=== PATIENT | male | born 1960 | race Two or more races ===

== ENCOUNTER 2017-12-31 21:23 | Emergency (ER) | payer SELFPAY ==
[~2017-12-31] VITALS: Ht 185.4 cm; Wt 83.9 kg
[2017-12-31] MEDS ORDERED: cloNIDine HCL 0.1 MG TAB ONE (21:50)
[2017-12-31] MEDS: cloNIDine HCL 0.1 MG TAB PO ONE ×2 (21:50→22:30)
[2017-12-31 23:17] LABS: Basophils # (auto) 0.1 uL; Basophils % (auto) 0.8 % (0.0-2.0); Eosinophils # (auto) 0.5 uL; Eosinophils % (auto) 5.5 % (0.0-7.0); Hematocrit 45.3 % (41.0-53.0); Hemoglobin 15.3 g/dL (13.5-17.5); Lymphocytes # (auto) 3.2 uL; Lymphocytes % (auto) 36.5 % (10.0-50.0); Mean Corpuscular Hgb Conc. 33.9 g/dL (32.0-36.0); Mean Corpuscular Volume 94.4 fL (80.0-100.0); Monocytes # (auto) 0.7 uL; Neutrophils # (auto) 4.3 uL; Neutrophils % (auto) 49.2 % (37.0-80.0); Nucleated Red Blood Cells % 0.3 %; Platelet Count (auto) 139 10^3/uL (140-450); Red Blood Cells 4.79 10^6/uL (4.5-5.90); Red Cell Distribution Width 14.2 % (11.8-14.3); White Blood Cell 8.7 10^3/uL (4.4-10.8)
[2017-12-31 23:32] LABS: Albumin 3.8 g/dL (3.4-5.0); Calcium 8.6 mg/dL (8.5-10.1); Potassium 3.8 mmol/L (3.5-5.1)
[2017-12-31 23:34] LABS: BUN/Creatinine Ratio 27.3
[2017-12-31 23:37] LABS: Bilirubin, Total 0.3 mg/dL (0.2-1.0); Total Protein 7.6 g/dL (6.4-8.2)
[2018-01-01 01:04] LABS: Urine WBC None Seen /hpf (0 - 3)
[2018-01-01 01:21] LABS: Urine Bacteria NONE SEEN /hpf (None Seen); Urine Blood Negative /uL (Negative); Urine Mucus FEW (None Seen); Urine Specific Gravity 1.019 (1.001-1.035)
[2018-01-01 06:30] VITALS: BP 166/94
[2018-01-01] MEDS ORDERED: cefTRIAXone W LIDOCAINE 1 GM IM IM ONE (07:45)
== END 2018-01-01 09:13 | disposition home or self-care (01) ==
LOC: ER 21:23
DX: N48.29 Other inflammatory disorders of penis (principal)
CPT/HCPCS: 36415; 80053; 81001; 85025; 96372; 99284; J0696

== ENCOUNTER 2019-12-04 19:31 | Emergency (ER) | payer SELFPAY ==
[~2019-12-04] VITALS: Ht 185.4 cm; Wt 83.9 kg
[2019-12-04 20:15] VITALS: BP 204/107
[2019-12-04] MEDS ORDERED: cloNIDine HCL 0.1 MG TAB PO ONE (20:15)
[2019-12-04 21:28] LABS: Albumin 3.3 g/dL (3.4-5.0); Anion Gap 7 (5-15); Blood Urea Nitrogen 15 mg/dL (7-18); Calcium 8.5 mg/dL (8.5-10.1); Carbon Dioxide 26 mmol/L (21-32); Chloride 111 mmol/L (98-107); Glucose 110 mg/dL (74-106); Potassium 3.8 mmol/L (3.5-5.1); Sodium 144 mmol/L (136-145)
[2019-12-04 21:29] LABS: Basophils # (auto) 0.1 10 ^3/uL (0-0.2); Eosinophils # (auto) 0.5 10 ^3/uL (0-0.8); Eosinophils % (auto) 6.7 % (0.0-7.0); Hematocrit 44.6 % (41.0-53.0); Hemoglobin 15.2 g/dL (13.5-17.5); Lymphocytes # (auto) 2.5 10 ^3/uL (0.4-5.4); Lymphocytes % (auto) 35.2 % (10.0-50.0); Mean Corpuscular Hemoglobin 32.2 pg (28.0-32.0); Mean Corpuscular Hgb Conc. 34.2 g/dL (32.0-36.0); Mean Corpuscular Volume 94.2 fL (80.0-100.0); Monocytes # (auto) 0.5 10 ^3/uL (0-1.3); Monocytes % (auto) 7.2 % (0.0-12.0); Neutrophils # (auto) 3.5 10 ^3/uL (1.6-8.6); Neutrophils % (auto) 49.9 % (37.0-80.0); Nucleated Red Blood Cells % 0.1 %; Platelet Count (auto) 115 10^3/uL (140-450); Red Blood Cells 4.73 10^6/uL (4.5-5.90)
[2019-12-04 21:34] LABS: Alanine Aminotransferase 16 U/L (16-61); Alkaline Phosphatase 77 U/L (45-117); Aspartate Aminotransferase 12 U/L (15-37); BUN/Creatinine Ratio 20.3; Bilirubin, Total 0.2 mg/dL (0.2-1.0); GFR African American 140 mL/min; GFR Non-African American 116 mL/min; Total Protein 6.8 g/dL (6.4-8.2)
[2019-12-04 21:44] LABS: Urine Bacteria NONE SEEN /hpf (None Seen); Urine Blood Negative /uL (Negative); Urine Mucus FEW (None Seen); Urine Specific Gravity 1.021 (1.001-1.035); Urine WBC <1 /hpf (0 - 3)
== END 2019-12-04 22:04 | disposition home or self-care (01) ==
LOC: ER 19:31
DX: I16.0 Hypertensive urgency (principal); J02.9 Acute pharyngitis, unspecified; B37.89 Other sites of candidiasis; I10 Essential (primary) hypertension
CPT/HCPCS: 36415; 80053; 81001; 84484; 85025; 93005

== ENCOUNTER 2022-09-05 15:19 | Inpatient (IN) | payer MEDICAID, OTHER ==
[~2022-09-05] VITALS: Ht 185.4 cm; Wt 91.8 kg
[2022-09-05 16:23] LABS: Basophils # (auto) 0.1 10 ^3/uL (0-0.2); Basophils % (auto) 0.7 % (0.0-2.0); Eosinophils # (auto) 0.4 10 ^3/uL (0-0.8); Eosinophils % (auto) 4.7 % (0.0-7.0); Hematocrit 47.3 % (41.0-53.0); Hemoglobin 16.3 g/dL (13.5-17.5); Lymphocytes # (auto) 2.7 10 ^3/uL (0.4-5.4); Mean Corpuscular Hemoglobin 31.5 pg (28.0-32.0); Mean Corpuscular Hgb Conc. 34.5 g/dL (32.0-36.0); Mean Corpuscular Volume 91.2 fL (80.0-100.0); Monocytes # (auto) 0.7 10 ^3/uL (0-1.3); Monocytes % (auto) 7.7 % (0.0-12.0); Neutrophils # (auto) 5.4 10 ^3/uL (1.6-8.6); Neutrophils % (auto) 57.9 % (37.0-80.0); Nucleated Red Blood Cells % 0.3 %; Red Blood Cells 5.19 10^6/uL (4.5-5.90); Red Cell Distribution Width 14.1 % (11.8-14.3); White Blood Cell 9.3 10^3/uL (4.4-10.8)
[2022-09-05 16:39] LABS: Albumin 3.5 g/dL (3.4-5.0); BUN/Creatinine Ratio 20.3; Potassium 4.1 mmol/L (3.5-5.1)
[2022-09-05 16:41] LABS: Bilirubin, Total 0.4 mg/dL (0.2-1.0); Total Protein 6.8 g/dL (6.4-8.2)
[2022-09-05] MEDS ORDERED: ASPirin 325 MG TAB PO ONE (17:30)
[2022-09-05 18:14] LABS: Urine Bacteria NONE SEEN /hpf (None Seen); Urine Blood Negative /uL (Negative); Urine Hyaline Cast FEW /lpf (0 - 2); Urine Mucus FEW (None Seen); Urine Specific Gravity 1.018 (1.001-1.035); Urine WBC 2 /hpf (0 - 3)
[2022-09-05] MEDS ORDERED: MORPHINE SULFATE INJ 2 MG/ml SYRG IV PRN (19:00)
[2022-09-05] MEDS ORDERED: NITROGLYCERIN 0.4 MG SL TAB SL PRN (19:00)
[2022-09-05] MEDS ORDERED: METOPROLOL SUCCINATE XL 50 MG TAB PO ONE (19:00)
[2022-09-05 19:32] LABS: Cholesterol 172 mg/dL (< 200)
[2022-09-05 19:34] LABS: HDL Cholesterol 43 mg/dL (40-59); LDL Cholesterol 122 mg/dL (< 100); Triglycerides 85 mg/dL (< 150)
[2022-09-05 19:50] LABS: Amphetamine Screen, Urine NEGATIVE (NEGATIVE); Barbiturate Scree,Urine NEGATIVE (NEGATIVE); Benzodiazephine Screen, Urine NEGATIVE (NEGATIVE); Cannabinoid Screen, Urine NEGATIVE (NEGATIVE); Cocaine Screen, Urine NEGATIVE (NEGATIVE); Opiate Scree,Urine NEGATIVE (NEGATIVE); Phencyclidine Screen, Urine NEGATIVE (NEGATIVE)
[2022-09-05 20:00] LABS: Alcohol, Urine < 3.0 mg/dL (0-10)
[2022-09-05] MEDS: ATORVASTATIN 20 MG TAB PO SCH (22:20)
[2022-09-05] MEDS: hydrALAZINE HCL 20 MG/ML VL IV PRN (22:54)
[2022-09-06 01:31] VITALS: BP 130/91
[2022-09-06] MEDS ORDERED: CLON-499 PO (03:25)
[2022-09-06] MEDS ORDERED: ASPI-543 PO (03:25)
[2022-09-06 05:00] VITALS: BP 163/90
[2022-09-06] MEDS: hydrALAZINE HCL 20 MG/ML VL IV PRN (06:13)
[2022-09-06 07:09] LABS: Basophils # (auto) 0.1 10 ^3/uL (0-0.2); Basophils % (auto) 0.9 % (0.0-2.0); Eosinophils # (auto) 0.4 10 ^3/uL (0-0.8); Eosinophils % (auto) 6.5 % (0.0-7.0); Hematocrit 45.4 % (41.0-53.0); Hemoglobin 15.7 g/dL (13.5-17.5); Lymphocytes # (auto) 2.2 10 ^3/uL (0.4-5.4); Lymphocytes % (auto) 34.8 % (10.0-50.0); Mean Corpuscular Hemoglobin 31.5 pg (28.0-32.0); Mean Corpuscular Hgb Conc. 34.6 g/dL (32.0-36.0); Monocytes # (auto) 0.5 10 ^3/uL (0-1.3); Monocytes % (auto) 8.2 % (0.0-12.0); Neutrophils # (auto) 3.2 10 ^3/uL (1.6-8.6); Neutrophils % (auto) 49.6 % (37.0-80.0); Nucleated Red Blood Cells % 0.1 %; Red Blood Cells 4.99 10^6/uL (4.5-5.90); White Blood Cell 6.4 10^3/uL (4.4-10.8)
[2022-09-06 07:14] LABS: Albumin 3.6 g/dL (3.4-5.0); Bilirubin, Total 0.7 mg/dL (0.2-1.0); Calcium 8.6 mg/dL (8.5-10.1); Total Protein 6.7 g/dL (6.4-8.2)
[2022-09-06] MEDS: ASPirin 81 mg TAB PO SCH (08:17)
[2022-09-06] MEDS: METOPROLOL SUCCINATE XL 50 MG TAB PO SCH (08:18)
[2022-09-06] MEDS: ENOXAPARIN SOD 40 MG/0.4 ML SYRINGE SC SCH (08:18)
[2022-09-06 09:00] VITALS: BP 157/99
[2022-09-06] MEDS ORDERED: LOSARTAN POTASSIUM 25 MG TAB PO ONE (10:45)
[2022-09-06] MEDS ORDERED: ONDANSETRON HCL 4 MG/2 ML VIAL IV PRN (11:45)
[2022-09-06] MEDS ORDERED: ACETAMINOPHEN 325 MG TAB PO PRN (11:45)
[2022-09-06] MEDS ORDERED: cloNIDine HCL 0.1 MG TAB PO ONE (11:45)
[2022-09-06] MEDS ORDERED: cloNIDine HCL 0.1 MG TAB PO PRN (12:00)
[2022-09-06] MEDS ORDERED: NICOTINE 14 MG/24HR TOPICAL PATCH TD ONE (12:15)
[2022-09-06 13:00] VITALS: BP 117/88
[2022-09-06 17:00] VITALS: BP 131/72
[2022-09-06] MEDS: ATORVASTATIN 20 MG TAB PO SCH (21:49)
[2022-09-06 22:00] VITALS: BP 136/84
[2022-09-07 05:00] VITALS: BP 144/82
[2022-09-07] MEDS ORDERED: ADENOSINE 77 MG in GIVE UN-DILUTED 0 ML IV ONE (08:00)
[2022-09-07 08:53] VITALS: BP 139/96
[2022-09-07] MEDS: ASPirin 81 mg TAB PO SCH (09:24)
[2022-09-07] MEDS: ENOXAPARIN SOD 40 MG/0.4 ML SYRINGE SC SCH (09:25)
[2022-09-07] MEDS: METOPROLOL SUCCINATE XL 50 MG TAB PO SCH (09:25)
[2022-09-07] MEDS ORDERED: LOSARTAN POTASSIUM 25 MG TAB PO SCH (10:00)
[2022-09-07] MEDS ORDERED: NICOTINE 14 MG/24HR TOPICAL PATCH TD SCH (10:00)
[2022-09-07] MEDS ORDERED: cloNIDine HCL 0.1 MG TAB PO SCH (10:00)
[2022-09-07 11:02] VITALS: BP 128/87
[2022-09-07 13:05] VITALS: BP 137/83
[2022-09-07 16:47] VITALS: BP 128/87
[2022-09-07 17:08] VITALS: BP 138/80
== END 2022-09-07 18:00 | disposition home or self-care (01) | DRG 203 ==
LOC: ER 15:19 → TELE 18:56 → TELE-WESTW 23:26
PROVIDERS: ADMIT Registered Nurse; ATTEND Student in an Organized Health Care Education/Training Program
DX: R07.9 Chest pain, unspecified (principal); E78.5 Hyperlipidemia, unspecified; F17.200 Nicotine dependence, unspecified, uncomplicated; I10 Essential (primary) hypertension; H91.90 Unspecified hearing loss, unspecified ear; Z20.822 Contact with and (suspected) exposure to COVID-19; R73.03 Prediabetes; Z71.6 Tobacco abuse counseling; Z82.49 Family history of ischemic heart disease and other diseases of the circulatory system
CPT/HCPCS: 36415; 71045; 78452; 80053; 80061; 80307; 81001; 83036; 84443; 84484; 85025; 87426; 93005; 93017; 93306; 96374; G0378; J0153; J2405

== ENCOUNTER 2023-05-09 19:26 | Inpatient (IN) | payer MEDICAID ==
[~2023-05-09] VITALS: Ht 185.4 cm; Wt 87.5 kg
[~2023-05-09 19:26] MED LIST: ASPI-543 PO; CLON-499 PO
[2023-05-09 20:00] VITALS: PULSE 88; RESP 19; O2SAT 95
[2023-05-09 20:16] LABS: Basophils # (auto) 0.1 10 ^3/uL (0-0.2); Basophils % (auto) 0.7 % (0.0-2.0); Eosinophils # (auto) 0.4 10 ^3/uL (0-0.8); Hematocrit 45.9 % (41.0-53.0); Hemoglobin 15.7 g/dL (13.5-17.5); Lymphocytes # (auto) 2.5 10 ^3/uL (0.4-5.4); Lymphocytes % (auto) 30.3 % (10.0-50.0); Mean Corpuscular Hemoglobin 31.7 pg (28.0-32.0); Mean Corpuscular Hgb Conc. 34.2 g/dL (32.0-36.0); Mean Corpuscular Volume 92.9 fL (80.0-100.0); Monocytes # (auto) 0.6 10 ^3/uL (0-1.3); Monocytes % (auto) 7.6 % (0.0-12.0); Neutrophils # (auto) 4.7 10 ^3/uL (1.6-8.6); Neutrophils % (auto) 56.4 % (37.0-80.0); Red Blood Cells 4.94 10^6/uL (4.5-5.90); Red Cell Distribution Width 13.8 % (11.8-14.3); White Blood Cell 8.3 10^3/uL (4.4-10.8)
[2023-05-09 20:34] LABS: Alanine Aminotransferase 20 U/L (7-40); Albumin 4.2 g/dL (3.2-4.8); Alkaline Phosphatase 86 U/L (46-116); Anion Gap 6 (5-15); Aspartate Aminotransferase 17 U/L (13-40); BUN/Creatinine Ratio 21.5 (10.0-20.0); Blood Urea Nitrogen 17 mg/dL (9-23); Calcium 9.2 mg/dL (8.7-10.4); Carbon Dioxide 24 mmol/L (20-30); Chloride 112 mmol/L (98-107); Glucose 110 mg/dL (74-106); Magnesium 1.7 mg/dL (1.6-2.6); Potassium 3.8 mmol/L (3.5-5.1); Sodium 142 mmol/L (136-145)
[2023-05-09 20:35] LABS: Bilirubin, Total 0.3 mg/dL (0.2-1.0); Total Protein 6.5 g/dL (5.7-8.2)
[2023-05-09] MEDS ORDERED: cloNIDine HCL 0.1 MG TAB PO ONE (22:30)
[2023-05-09] MEDS ORDERED: cefTRIAXone 1GM/50ML D5W 50 ML IV ONE (22:30)
[2023-05-09 23:06] LABS: Amphetamine Screen, Urine Neg (NEGATIVE); Barbiturate Scree,Urine Neg (NEGATIVE); Benzodiazephine Screen, Urine Neg (NEGATIVE); Cannabinoid Screen, Urine Neg (NEGATIVE); Cocaine Screen, Urine Neg (NEGATIVE); Opiate Scree,Urine Neg (NEGATIVE); Phencyclidine Screen, Urine Neg (NEGATIVE)
[2023-05-09 23:08] LABS: Urine Bacteria NONE SEEN /hpf (None Seen); Urine Blood Negative /uL (Negative); Urine Clarity Clear (Clear); Urine Color Colorless (Yellow); Urine Protein, UAD Negative (Negative); Urine Specific Gravity 1.004 (1.001-1.035); Urine Urobilinogen Normal (Negative); Urine WBC <1 /hpf (0 - 3)
[2023-05-10] MEDS ORDERED: VANCOMYCIN PER PHARMACY 0 MG IV SCH (05:30)
[2023-05-10] MEDS ORDERED: NITROGLYCERIN 0.4 MG SL TAB SL PRN (05:30)
[2023-05-10] MEDS ORDERED: HYDROcodone-ACET 5/325MG TAB PO PRN (05:30)
[2023-05-10] MEDS ORDERED: ONDANSETRON HCL 4 MG/2 ML VIAL IV PRN (05:30)
[2023-05-10] MEDS ORDERED: MORPHINE SULFATE INJ 2 MG/ml SYRG IV PRN (05:30)
[2023-05-10] MEDS ORDERED: ACETAMINOPHEN 325 MG TAB PO PRN (05:30)
[2023-05-10] MEDS ORDERED: VANCOMYCIN 1GM/250ML 250 ML IV ONE (06:30)
[2023-05-10 07:55] VITALS: PULSE 63; RESP 12; O2SAT 95
[2023-05-10] MEDS: ENOXAPARIN SOD 40 MG/0.4 ML SYRINGE SC SCH (09:52)
[2023-05-10] MEDS: ASPirin 81 mg TAB PO SCH (09:52)
[2023-05-10] MEDS: PANTOPRAZOLE 40 MG TAB PO SCH (09:52)
[2023-05-10] MEDS: METOPROLOL SUCCINATE XL 50 MG TAB PO SCH (09:53)
[2023-05-10] MEDS: amLODIPine BESYLATE 5 MG TAB PO SCH (09:53)
[2023-05-10] MEDS: LISINOPRIL 10 MG TAB PO SCH (13:34)
[2023-05-10] MEDS: VANCOMYCIN 1GM/250ML 250 ML IV SCH ×2 (13:48→22:49)
[2023-05-10 15:20] LABS: Erythrocyte Sedimentation Rate 8 mm/hr (0-20)
[2023-05-10 19:30] VITALS: PULSE 65; RESP 14; O2SAT 96
[2023-05-10 22:00] VITALS: BP 140/83; PULSE 67; RESP 18; TEMP 97.9; O2SAT 95
[2023-05-10] MEDS ORDERED: ATORVASTATIN 20 MG TAB PO SCH (22:00)
[2023-05-10] MEDS: ATORVASTATIN 20 MG TAB PO SCH (22:49)
[2023-05-11] VITALS (15 sets, daily range): BP systolic 131–177; BP diastolic 82–110; PULSE 66–105; RESP 16–20; TEMP 97.8–98.9; O2SAT 95–100
[2023-05-11] MEDS: hydrALAZINE HCL 20 MG/ML VL IV PRN ×2 (05:17→22:57)
[2023-05-11 06:19] LABS: Chloride 108 mmol/L (98-107); Potassium 4.1 mmol/L (3.5-5.1); Sodium 139 mmol/L (136-145)
[2023-05-11 06:20] LABS: Anion Gap 4 (5-15); Carbon Dioxide 27 mmol/L (20-30)
[2023-05-11 06:21] LABS: Calcium 9.3 mg/dL (8.7-10.4)
[2023-05-11 06:25] LABS: Glucose 101 mg/dL (74-106)
[2023-05-11 06:26] LABS: BUN/Creatinine Ratio 15.4 (10.0-20.0); Blood Urea Nitrogen 10 mg/dL (9-23)
[2023-05-11 07:41] LABS: Basophils # (auto) 0.1 10 ^3/uL (0-0.2); Basophils % (auto) 0.7 % (0.0-2.0); Eosinophils # (auto) 0.5 10 ^3/uL (0-0.8); Eosinophils % (auto) 5.8 % (0.0-7.0); Hematocrit 47.1 % (41.0-53.0); Lymphocytes # (auto) 2.3 10 ^3/uL (0.4-5.4); Lymphocytes % (auto) 27.1 % (10.0-50.0); Mean Corpuscular Hemoglobin 31.8 pg (28.0-32.0); Mean Corpuscular Volume 93.5 fL (80.0-100.0); Monocytes # (auto) 0.6 10 ^3/uL (0-1.3); Monocytes % (auto) 6.9 % (0.0-12.0); Neutrophils # (auto) 4.9 10 ^3/uL (1.6-8.6); Neutrophils % (auto) 59.5 % (37.0-80.0); Nucleated Red Blood Cells % 0.6 %; Red Blood Cells 5.03 10^6/uL (4.5-5.90); Red Cell Distribution Width 14.3 % (11.8-14.3); White Blood Cell 8.3 10^3/uL (4.4-10.8)
[2023-05-11 07:49] LABS: INR 1.07 (0.9-1.15); Partial Thromboplastin Time 28.2 SEC (24.5-34.5); Prothrombin Time 11.2 sec (9.3-11.8)
[2023-05-11] MEDS: VANCOMYCIN 1GM/250ML 250 ML IV SCH ×2 (09:21→17:01)
[2023-05-11] MEDS: amLODIPine BESYLATE 5 MG TAB PO SCH (09:22)
[2023-05-11] MEDS: ASPirin 81 mg TAB PO SCH (09:23)
[2023-05-11] MEDS: ENOXAPARIN SOD 40 MG/0.4 ML SYRINGE SC SCH (09:23)
[2023-05-11] MEDS: PANTOPRAZOLE 40 MG TAB PO SCH (09:23)
[2023-05-11] MEDS: METOPROLOL SUCCINATE XL 50 MG TAB PO SCH (09:23)
[2023-05-11] MEDS: LISINOPRIL 10 MG TAB PO SCH (09:23)
[2023-05-11] MEDS ORDERED: VERAPAMIL 2.5MG/ML INJ 2ML VIAL IV ONE (13:25)
[2023-05-11] MEDS ORDERED: HEPARIN SODIUM (PORCINE) 5000 UNITS/ML 1ML VIAL ONE (13:25)
[2023-05-11] MEDS ORDERED: ANGIOMAX 250 MG VIAL IV ONE (13:25)
[2023-05-11] MEDS ORDERED: fentaNYL CITRATE 100 MCG/2 ML VL ONE (13:26)
[2023-05-11] MEDS ORDERED: IODIXANOL 320MG/ML 100ML BTL IV ONE ×3 (13:26→14:51)
[2023-05-11] MEDS ORDERED: SODIUM CHL 0.9% 50 ML ONE (13:26)
[2023-05-11] MEDS ORDERED: MIDAZOLAM HCL 2MG/2ML 2ml VIAL (1mg/ml) ONE (13:26)
[2023-05-11] MEDS ORDERED: LIDOCAINE 2%HCL (LOCAL ANESTH.) INJ 20ML MDV ONE (13:26)
[2023-05-11] MEDS ORDERED: CLOPIDOGREL 300 MG TAB ONE (14:55)
[2023-05-11] MEDS: ATORVASTATIN 20 MG TAB PO SCH (21:27)
[2023-05-12] MEDS: VANCOMYCIN 1GM/250ML 250 ML IV SCH ×3 (01:06→17:46)
[2023-05-12 05:53] VITALS: BP 136/86; PULSE 79; RESP 16; TEMP 98.7; O2SAT 97
[2023-05-12 08:00] VITALS: BP 146/91; PULSE 77; PULSE 78; RESP 18; TEMP 98.2; O2SAT 95
[2023-05-12] MEDS: ENOXAPARIN SOD 40 MG/0.4 ML SYRINGE SC SCH (10:04)
[2023-05-12] MEDS: ASPirin 81 mg TAB PO SCH (10:05)
[2023-05-12] MEDS: PANTOPRAZOLE 40 MG TAB PO SCH (10:05)
[2023-05-12] MEDS: LISINOPRIL 10 MG TAB PO SCH (10:05)
[2023-05-12] MEDS: amLODIPine BESYLATE 5 MG TAB PO SCH (10:05)
[2023-05-12] MEDS: METOPROLOL SUCCINATE XL 50 MG TAB PO SCH (10:06)
[2023-05-12] MEDS: CLOPIDOGREL BISULFATE 75 MG TAB PO SCH (10:06)
[2023-05-12 13:00] VITALS: BP 147/89; PULSE 72; RESP 22; TEMP 98.2; O2SAT 95
[2023-05-12 17:00] VITALS: BP 134/88; PULSE 70; RESP 19; TEMP 98.2; O2SAT 99
[2023-05-12 20:00] VITALS: BP 137/83; PULSE 64; PULSE 71; RESP 20; TEMP 97.5; O2SAT 96
[2023-05-12] MEDS: ATORVASTATIN 20 MG TAB PO SCH (21:28)
[2023-05-12 22:00] VITALS: BP 137/83; PULSE 64; RESP 20; TEMP 97.5; O2SAT 96
[2023-05-13] VITALS (7 sets, daily range): BP systolic 119–147; BP diastolic 77–86; PULSE 65–81; RESP 17–18; TEMP 97.8–98.8; O2SAT 95–100
[2023-05-13] MEDS: VANCOMYCIN 1GM/250ML 250 ML IV SCH ×3 (01:13→17:01)
[2023-05-13 06:54] LABS: Potassium 4.4 mmol/L (3.5-5.1)
[2023-05-13 06:55] LABS: Calcium 9.3 mg/dL (8.7-10.4)
[2023-05-13 07:00] LABS: BUN/Creatinine Ratio 11.3 (10.0-20.0)
[2023-05-13 07:01] LABS: Albumin 4.2 g/dL (3.2-4.8)
[2023-05-13 07:02] LABS: Phosphorus 3.9 mg/dL (2.4-5.1)
[2023-05-13] MEDS: PANTOPRAZOLE 40 MG TAB PO SCH (10:00)
[2023-05-13] MEDS: amLODIPine BESYLATE 5 MG TAB PO SCH (10:00)
[2023-05-13] MEDS: METOPROLOL SUCCINATE XL 50 MG TAB PO SCH (10:00)
[2023-05-13] MEDS: LISINOPRIL 10 MG TAB PO SCH (10:00)
[2023-05-13] MEDS ORDERED: fentaNYL CITRATE 100 MCG/2 ML VL ONE (10:41)
[2023-05-13] MEDS ORDERED: ONDANSETRON HCL 4 MG/2 ML VIAL ONE (10:42)
[2023-05-13] MEDS ORDERED: LIDOCAINE 2% (LOCAL ANESTH.) PF 5ml SDV ONE (10:42)
[2023-05-13] MEDS ORDERED: MIDAZOLAM HCL 2MG/2ML 2ml VIAL (1mg/ml) ONE (10:42)
[2023-05-13] MEDS ORDERED: PROPOFOL 10 MG/ML 20 ML IV ONE ×2 (10:43→13:49)
[2023-05-13] MEDS ORDERED: ceFAZolin 1GM/50ML 100 ML IV ONE (12:55)
[2023-05-13] MEDS ORDERED: ceFAZolin 1GM VL ONE (12:55)
[2023-05-13] MEDS ORDERED: ONDANSETRON HCL 4 MG/2 ML VIAL IV PRN (14:00)
[2023-05-13] MEDS ORDERED: HYDROmorphone HCL 2 MG/ML VL/or syr IV PRN ×2 (14:00)
[2023-05-13] MEDS: CLOPIDOGREL BISULFATE 75 MG TAB PO SCH (15:31)
[2023-05-13] MEDS: ASPirin 81 mg TAB PO SCH (15:31)
[2023-05-13] MEDS ORDERED: SUCCINYLCHOLINE CHLORIDE 20 MG/ML 10ML VIAL IV ONE (16:40)
[2023-05-13] MEDS: ATORVASTATIN 20 MG TAB PO SCH (21:11)
[2023-05-14] MEDS: VANCOMYCIN 1GM/250ML 250 ML IV SCH ×2 (01:08→09:17)
[2023-05-14 05:00] VITALS: BP 134/88; PULSE 66; RESP 17; TEMP 98.3; O2SAT 98
[2023-05-14 06:20] LABS: Basophils # (auto) 0 10 ^3/uL (0-0.2); Basophils % (auto) 0.5 % (0.0-2.0); Eosinophils # (auto) 0.5 10 ^3/uL (0-0.8); Eosinophils % (auto) 6.5 % (0.0-7.0); Hematocrit 44.7 % (41.0-53.0); Lymphocytes # (auto) 1.8 10 ^3/uL (0.4-5.4); Lymphocytes % (auto) 25.6 % (10.0-50.0); Mean Corpuscular Hemoglobin 31.5 pg (28.0-32.0); Mean Corpuscular Hgb Conc. 33.6 g/dL (32.0-36.0); Mean Corpuscular Volume 93.8 fL (80.0-100.0); Monocytes # (auto) 0.6 10 ^3/uL (0-1.3); Monocytes % (auto) 7.8 % (0.0-12.0); Neutrophils # (auto) 4.2 10 ^3/uL (1.6-8.6); Neutrophils % (auto) 59.6 % (37.0-80.0); Nucleated Red Blood Cells % 0.2 %; Red Blood Cells 4.77 10^6/uL (4.5-5.90); White Blood Cell 7.1 10^3/uL (4.4-10.8)
[2023-05-14 06:35] LABS: Anion Gap 5 (5-15); Carbon Dioxide 29 mmol/L (20-30); Chloride 105 mmol/L (98-107); Potassium 4.3 mmol/L (3.5-5.1); Sodium 139 mmol/L (136-145)
[2023-05-14 06:37] LABS: Calcium 9.1 mg/dL (8.7-10.4)
[2023-05-14 06:41] LABS: BUN/Creatinine Ratio 13.9 (10.0-20.0); Blood Urea Nitrogen 11 mg/dL (9-23); Glucose 111 mg/dL (74-106)
[2023-05-14 08:00] VITALS: PULSE 77; PULSE 92; RESP 18; O2SAT 94
[2023-05-14] MEDS: amLODIPine BESYLATE 5 MG TAB PO SCH (09:15)
[2023-05-14] MEDS: ASPirin 81 mg TAB PO SCH (09:16)
[2023-05-14] MEDS: LISINOPRIL 10 MG TAB PO SCH (09:17)
[2023-05-14] MEDS: CLOPIDOGREL BISULFATE 75 MG TAB PO SCH (09:17)
[2023-05-14] MEDS: PANTOPRAZOLE 40 MG TAB PO SCH (09:17)
[2023-05-14] MEDS: METOPROLOL SUCCINATE XL 50 MG TAB PO SCH (09:18)
[2023-05-14 09:21] VITALS: BP 114/75; PULSE 77; RESP 77; TEMP 98.1; O2SAT 94
[2023-05-14 13:00] VITALS: BP 136/74; PULSE 65; RESP 17; TEMP 98.5; O2SAT 96
[2023-05-14] MEDS ORDERED: AML5T PO (13:13)
[2023-05-14] MEDS ORDERED: DOXY-447 PO (13:13)
[2023-05-14] MEDS ORDERED: METO-6 PO (13:13)
[2023-05-14] MEDS ORDERED: ATOR20TA50 PO (13:13)
[2023-05-14] MEDS ORDERED: CLOP75TA70 PO (13:13)
[2023-05-14] MEDS ORDERED: ASPI-325 PO (13:13)
[2023-05-14] MEDS ORDERED: LISI10TA34 PO (13:13)
[2023-05-14 13:44] VITALS: BP 136/74; PULSE 65; RESP 17; TEMP 98.5; O2SAT 96
[2023-05-14 17:00] VITALS: BP 115/70; PULSE 61; RESP 17; TEMP 98.1; O2SAT 96
== END 2023-05-14 17:43 | disposition home or self-care (01) | DRG 175 ==
LOC: EDBD 19:26 → ER 19:28 → TELE 05-10 05:33 → TELE-EAST 05-10 20:53
PROVIDERS: ADMIT Nurse Practitioner; ATTEND Nurse Practitioner Acute Care
PROC: 027034Z Dilation of Coronary Artery, One Artery with Drug-eluting Intraluminal Device, Percutaneous Approach (ICD-10-PCS; principal; 2023-05-11)
PROC: 4A023N7 Measurement of Cardiac Sampling and Pressure, Left Heart, Percutaneous Approach (ICD-10-PCS; 2023-05-11)
PROC: B211YZZ Fluoroscopy of Multiple Coronary Arteries using Other Contrast (ICD-10-PCS; 2023-05-11)
PROC: B215YZZ Fluoroscopy of Left Heart using Other Contrast (ICD-10-PCS; 2023-05-11)
PROC: 0MBP0ZZ Excision of Left Knee Bursa and Ligament, Open Approach (ICD-10-PCS; 2023-05-13)
DX: I25.110 Atherosclerotic heart disease of native coronary artery with unstable angina pectoris (principal); L02.416 Cutaneous abscess of left lower limb; E87.8 Other disorders of electrolyte and fluid balance, not elsewhere classified; M71.062 Abscess of bursa, left knee; I47.1 Supraventricular tachycardia; L03.116 Cellulitis of left lower limb; E86.0 Dehydration; E78.5 Hyperlipidemia, unspecified; H91.90 Unspecified hearing loss, unspecified ear; R79.89 Other specified abnormal findings of blood chemistry; I16.0 Hypertensive urgency; F17.200 Nicotine dependence, unspecified, uncomplicated; R73.03 Prediabetes; I10 Essential (primary) hypertension; Z79.899 Other long term (current) drug therapy; Z82.49 Family history of ischemic heart disease and other diseases of the circulatory system
CPT/HCPCS: 36415; 71045; 73700; 80048; 80053; 80069; 80202; 80307; 81001; 83735; 83880; 84443; 84484; 85025; 85610; 85652; 85730; 86850; 86900; 86901; 87070; 87075; 87077; 87186; 87205; 92928; 93005; 93306; 93458; 96365; 99152; 99291; G0378; J0330; J0690; J0696; J2001; J2250; J2405; J2704; Q9967

== ENCOUNTER → 2023-06-05 | Outpatient (CLI) | payer MEDICAID ==
[~2023-06-05] MED LIST changes: +AML5T PO; +ASPI-325 PO; +ATOR20TA50 PO; +CLOP75TA70 PO; +DOXY-447 PO; +LISI10TA34 PO; +METO-6 PO
== END | disposition home or self-care (01) ==
LOC: Rad HDHVI 13:30
PROVIDERS: ATTEND Internal Medicine Cardiovascular Disease
DX: R07.9 Chest pain, unspecified (principal); I10 Essential (primary) hypertension
CPT/HCPCS: 93306

== ENCOUNTER → 2023-06-13 | Outpatient (CLI) | payer MEDICAID ==
[~2023-06-13] VITALS: Ht 185.4 cm; Wt 90.7 kg
[~2023-06-13] MED LIST changes: +D5W 5% IV SCH; +DIPYRIDAMOLE (5MG/ML) 10 ML VIAL IV ONE; +DIPYRIDAMOLE IV SCH
== END | disposition home or self-care (01) ==
LOC: Rad HDHVI 08:23
PROVIDERS: ATTEND Internal Medicine Cardiovascular Disease
DX: Z01.810 Encounter for preprocedural cardiovascular examination (principal); I25.10 Atherosclerotic heart disease of native coronary artery without angina pectoris; I10 Essential (primary) hypertension; F17.210 Nicotine dependence, cigarettes, uncomplicated; R07.9 Chest pain, unspecified; E78.00 Pure hypercholesterolemia, unspecified; Z82.49 Family history of ischemic heart disease and other diseases of the circulatory system; Z79.899 Other long term (current) drug therapy; Z79.82 Long term (current) use of aspirin
CPT/HCPCS: 78452; 93005; 96374; 96375; A9500; J1245

== ENCOUNTER 2023-11-20 08:53 | Emergency (ER) | payer MEDICAID ==
[~2023-11-20] VITALS: Ht 185.4 cm; Wt 98.1 kg
[~2023-11-20 08:53] MED LIST changes: -D5W 5% IV SCH; -DIPYRIDAMOLE (5MG/ML) 10 ML VIAL IV ONE; -DIPYRIDAMOLE IV SCH
[2023-11-20 10:02] VITALS: BP 177/96; PULSE 70; RESP 18; TEMP 97.9; O2SAT 97
[2023-11-20] MEDS ORDERED: methylPREDNISolone SOD SUCC 125 MG/2 ML VL IM ONE (10:30)
[2023-11-20] MEDS ORDERED: KETOROLAC TROMETH 30 MG/ML 1ML VIAL IM ONE (10:30)
[2023-11-20] MEDS ORDERED: MELO7.5T7 PO (10:30)
[2023-11-20] MEDS: methylPREDNISolone SOD SUCC 125 MG/2 ML VL ONE (10:45)
== END 2023-11-20 10:32 | disposition home or self-care (01) ==
LOC: ER 08:53
DX: M54.31 Sciatica, right side (principal); I10 Essential (primary) hypertension
CPT/HCPCS: 99283; J2930

== ENCOUNTER 2024-05-07 18:00 | Emergency (ER) | payer MEDICAID ==
[~2024-05-07] VITALS: Ht 185.4 cm; Wt 88.2 kg
[~2024-05-07 18:00] MED LIST changes: -AML5T PO; -CLON-499 PO; -DOXY-447 PO; +DOXY1CAP58 PO; +MELO7.5T7 PO; +NIFE1TAB31 PO
[2024-05-07 18:35] VITALS: BP 144/103; PULSE 77; RESP 16; TEMP 98.4; O2SAT 97
[2024-05-07] MEDS: TRIAMCINOLONE 40MG/ML 1ML VIAL IX ONE (21:11)
[2024-05-07] MEDS: TRIAMCINOLONE 40MG/ML 1ML VIAL ONE (21:11)
[2024-05-07] MEDS: LIDOCAINE 1% HCL (LOCAL ANESTH.) INJ 20ML MDV IJ ONE (21:13)
== END 2024-05-07 21:37 | disposition home or self-care (01) ==
LOC: ER 18:00
DX: M70.42 Prepatellar bursitis, left knee (principal); I10 Essential (primary) hypertension; F17.210 Nicotine dependence, cigarettes, uncomplicated
CPT/HCPCS: 20610; 99283; J3301; J2001

== ENCOUNTER 2025-06-29 12:35 | Emergency (ER) | payer MEDICAID ==
[~2025-06-29] VITALS: Ht 185.4 cm; Wt 94.0 kg
[~2025-06-29 12:35] MED LIST changes: +METH4PAK PO
--- NOTE | 2025-06-29 13:25 | ED.PDOC ---
GI ASSESSMENT HPI Comments Mr. Tovar 64-year-old male with prior medical history of hypertension, CAD status post PCI with 1 YUNIER, and laparotomy for removal of "20 mm of necrotic bowel,"who presents today with chief complaint of right-sided abdominal discomfort and swelling. The patient is a poor historian. The patient states that for the last 3 days he has had right upper quadrant discomfort, nonradiating, intensity 1/10, associated with "swelling" in the lower right uppe r quadrant which is worsened by eating. Although he states last bowel movement was today, he reports he feels bloated. He denies nausea, vomiting, fever, bloody stools, chest pain, abdominal pain, back pain, dysuria, and hematuria. Due to persistence of symptoms he presented to the emergency department for further evaluation. On initial evaluation in the ED, the patient seems well, vitals were stable, he is ambulating without difficulty, and without overt signs of distress. Attestation note: Dr. Stern: I was the supervising attending for this ED encounter. Please see the resident's notes. I was available for questions and consultations. Differential diagnosis: DDX include but not limited to diverticulitis, colitis, gastroenteritis, acute abdomen, SBO, enteritis, constipation, volvulus, appendicitis, Gallbladder disease, choledocolithiasis, ascending cholangitis, pancreatitis, intraAbdominal mass/neoplasm, hepatitis, UTI, pylonephritis, kidney stone, aneurysm, dissection, Inflammatory bowel disease, gastroparesis, ischemic bowel. Food poisoning, bacterial/parasitic/viral etiology, trauma, diabetes DKA, MDM: MDM: patient presented with the above HPI.---abdominal pain---workup was initiated. patient was found with the above mentioned diagnosis. the following medications were ordered: please refer to order lists of meds and tests obtained by myself Dr. Stern. Patient ED course and VS have been stabilized. Patient has been reassessed in the ED and remained in a stable condition. Pertinent incidental findings were discussed with the patient and/or family. Patient/family voices understanding and is agreeable with plan. Patient has been observed in the ED adequate length of time to insure improvement/stability. Escalation of care considered: Consideration of escalation to observation or admission Patient was DISCHARGED home in a stable condition. All the reports of any imaging studies that were ordered by myself were reviewed by myself. Chief Complaint: Abdominal Pain Time Seen by MD: 12:45 Primary Care Provider: Reji Baca Notes: Allergies Allergies: Coded Allergies: NO KNOWN ALLERGIES (Unverified , 09/05/22) Home Meds Active Scripts Methylprednisolone (Medrol Dosepak) 4 Mg Rex, 4 MG PO UD for 6 Days, #21 TAB UAD Prov:JACKSONANDRE WEIGHT REDUCING TECHNICIAN 05/30/24 Nifedipine (Nifedipine Er) 30 Mg Tab, 60 MG PO DAILY for 30 Days, #60 TAB Prov:HARMONY LOCKE RESIDENT 04/22/24 Meloxicam (Meloxicam) 7.5 Mg Tab, 1 TAB PO DAILYP PRN for 30 Days, #30 TAB 0 Refills Prov:GUY NUÑEZ CONTINUOUS LOFT OPERATOR 11/20/23 Doxycycline (Monohydrate) (Doxycycline) 100 Mg Cap, 100 MG PO BID for 14 Days, #28 CAP Prov:LIA LESLIE CONTINUOUS LOFT OPERATOR 05/14/23 Lisinopril (Lisinopril) 10 Mg Tab, 10 MG PO DAILY for 60 Days, #60 TAB Prov:LIA LESLIE NP 05/14/23 Atorvastatin Calcium (ATORVASTATIN CALCIUM) 20 Mg Tab, 40 MG PO HS for 60 Days, #120 TAB Prov:LIA LESLIE NP 05/14/23 Metoprolol Succinate (Toprol Xl) 50 Mg Tab, 50 MG PO DAILY for 50 Days, #50 TAB Prov:LIA LESLIE CONTINUOUS LOFT OPERATOR 05/14/23 Clopidogrel Bisulfate (CLOPIDOGREL) 75 Mg Tab, 75 MG PO DAILY for 60 Days, #60 TAB Prov:LIA LESLIE NP 05/14/23 Aspirin (Aspirin Low Dose) 81 Mg Tab, 81 MG PO DAILY for 60 Days, #60 TAB Prov:LIA LESLIE NP 05/14/23 Reported Medications Aspirin (Aspir-Low) 81 Mg Tab, 81 MG PO DAILY for 30 Days, MG 09/06/22 Information Source: Patient Mode of Arrival: Ambulatory Timing: Days Duration: Since onset Quality: Other (Discomfort) Vomitus: None Stool: Normal Severity: None Recent: None Pain Location: RUQ Modifying Factors: Food Associated sign and symptoms: None Past Medical History PAST MEDICAL HISTORY: CAD, HTN Surgical History: PTCA (1 YUNIER) Surgical History (Other): Laparotomy with removal of 20 mm of necrotic bowel on the left side Family History Family History: Reviewed,noncontributory to illness, Family hx of HTN Social History Smoker: Cigarettes (Smoked 1 pack of cigarettes a day for 36 years) Alcohol: Denies ETOH Use Drugs: Denies Drug Use Lives In: Home Constitutional: denies: chills, diaphoresis, fatigue, fever, malaise, sweats, weakness EENTM: reports: nose pain; denies: blurred vision, double vision, mouth pain, nasal discharge, nose congestion Respiratory: reports: stridor; denies: cough, hemoptysis, orthopnea, shortness of breath Cardiovascular: denies: chest pain, dizzy spells, diaphoresis, edema, irregular heart beat, left arm pain, lightheadedness, palpitations Gastrointestinal: reports: others (Abdominal swelling in lower RUQ ) Physical Exam General Appearance: Normal HEENT: Normal ENT Inspection, PERRL/EOMI, Pharynx Normal Neck: Full Range of Motion, Non-Tender, Normal Inspection Respiratory: Chest Non-Tender, No Accessory Muscle Use, No Respiratory Distress, Wheezing Cardiovascular: No Edema, No Murmur, Normal Peripheral Pulses, Regular Rate/Rhythm Breast Exam: Deferred Gastrointestinal: Non Tender, Normal Bowel Sounds, Soft, Other (No palpable masses) Genitalia: Deferred Pelvic: Deferred Rectal: Deferred Extremities: Normal capillary refill, Normal inspection, Normal range of motion, Non-tender, No pedal edema Neurologic: Alert, Normal Affect, Normal Mood Cerebellar Function: Normal Reflexes: NOT DONE Skin: Normal Color Peripheral Pulses: 3+ dorsalis pedis (R), 3+ dorsalis pedis (L) Lymphatic: Other (Cervical adenopathy) Was a procedure done? Was a procedure done?: No GI differential Dx Differential Diagnosis: Angina/MN, Constipation, Diverticular disease, Gastritis/PUD, Gastroenteritis, Hernia, Ischemic Bowel, UTI, Urolithiasis X-Ray, Labs, Meds, VS Vital Signs Date Time Temp Pulse Resp B/P (MAP) Pulse Ox O2 Delivery O2 Flow Rate FiO2 06/29/25 14:10 98.0 64 13 142/84 (103) 97 98.0 06/29/25 14:10 64 16 97 Room Air* 0 21 06/29/25 12:38 97.1 72 15 148/88 96 97.1 Lab Test 06/29/25 14:09 06/29/25 13:34 Range/Units Urine Color Yellow Yellow Urine Clarity Clear Clear Urine pH 5.5 5.0-9.0 Urine Specific [place] 1.019 1.001-1.035 Urine Protein Negative Negative Urine Ketones Negative Negative Urine Blood Negative Negative /uL Urine Nitrite Negative Negative Urine Bilirubin Negative Negative Urine Urobilinogen Normal Negative mg/dL Urine Leukocyte Esterase Negative Negative /uL Urine RBC 1 0 - 3 /hpf Urine Microscopic WBC < 1 0-3 /HPF Urine Squamous Epithelial Cells Few <5 /hpf Urine Bacteria None seen None Seen /hpf Urine Mucus Few None Seen Urine Glucose Normal Normal mg/dL White Blood Count 7.2 4.4-10.8 10^3/uL Red Blood Count 4.87 4.5-5.90 10^6/uL Hemoglobin 15.4 13.5-17.5 g/dL Hematocrit 45.1 41.0-53.0 % Mean Corpuscular Volume 92.6 80.0-100.0 fL Mean Corpuscular Hemoglobin 31.5 28.0-32.0 pg Mean Corpuscular Hemoglobin Concent 34.0 32.0-36.0 g/dL Red Cell Distribution Width 14.4 H 11.8-14.3 % Platelet Count 144 140-450 10^3/uL Mean Platelet Volume 11.2 H 6.9-10.8 fL Neutrophils (%) (Auto) 60.0 37.0-80.0 % Lymphocytes (%) (Auto) 27.8 10.0-50.0 % Monocytes (%) (Auto) 7.0 0.0-12.0 % Eosinophils (%) (Auto) 4.2 0.0-7.0 % Basophils (%) (Auto) 1.0 0.0-2.0 % Neutrophils # (Auto) 4.3 1.6-8.6 10 ^3/uL Lymphocytes # (Auto) 2.0 0.4-5.4 10 ^3/uL Monocytes # (Auto) 0.5 0-1.3 10 ^3/uL Eosinophils # (Auto) 0.3 0-0.8 10 ^3/uL Basophils # (Auto) 0.1 0-0.2 10 ^3/uL Nucleated Red Blood Cells 0.1 % Sodium Level 144 136-145 mmol/L Potassium Level 4.1 3.5-5.1 mmol/L Chloride Level 112 H 98-107 mmol/L Carbon Dioxide Level 26 20-31 mmol/L Anion Gap 6 5-15 Blood Urea Nitrogen 14 9-23 mg/dL Creatinine 0.96 0.700-1.30 mg/dL Glomerular Filtration Rate Calc 89 >90 mL/min BUN/Creatinine Ratio 14.6 10.0-20.0 Serum Glucose 146 H 74-106 mg/dL Lactic Acid Level 1.1 0.4-2.0 mmol/L Calcium Level 9.3 8.7-10.4 mg/dL Total Bilirubin 0.6 0.2-1.0 mg/dL Aspartate Amino Transferase (AST) 17 13-40 U/L Alanine Aminotransferase (ALT) 19 7-40 U/L Alkaline Phosphatase 90 46-116 U/L Total Protein 6.4 5.7-8.2 g/dL Albumin 4.0 3.2-4.8 g/dL Lipase 53 12-53 U/L Time of 1ST Reevaluation: 14:05 Reevaluation 1ST: Unchanged Patient Education/Counseling: Diagnosis, Treatment Family Education/Counseling: No Family Present Comments The patient presented today with chief complaint of abdominal discomfort and right-sided swelling On initial evaluation, the patient seems well, vitals are stable, he is ambulating without difficulty, with no overt signs of distress Physical exam is negative Workup including CBC, CMP, lipase, and UA are benign Abdominal CT shows mild bladder wall thickening with surrounding stranding, blad adria diverticulum measuring up to 1.9 cm, moderate volume stool throughout the colon, left upper lobe lingular segment ground-glass airspace consolidation, gastric distention, and arthrosclerotic disease. Follow up vitals are stable The patient is considered stable for discharge home We recommend that the patient follow up with his primary care physician within the next week SEPSIS Sepsis Screen Date sepsis recognized/suspect: Jun 29, 2025 Time Sepsis recognized/suspect: 1240 Recent Procedure: No On Antibiotic Therapy: No Respiratory Rate >20: No Heart Rate >90: No Temp<36 C (96.8 F) or >38.3 C: No SBP <90 or MAP <65 mmHG: No New Acute Mental Status Change: No Is the patient on CPAP, BIPAP,: No Physician Orders Ct Ab Pel Wo Con-No Oral Or Iv (06/29/25 12:45) Cull Grader (06/29/25 ) Electrocardigram (06/29/25 13:08) Vital Signs Date Time Temp Pulse Resp B/P (MAP) Pulse Ox O2 Delivery O2 Flow Rate FiO2 06/29/25 14:10 98.0 64 13 142/84 (103) 97 98.0 06/29/25 14:10 64 16 97 Room Air* 0 21 06/29/25 12:38 97.1 72 15 148/88 96 97.1 Laboratory Tests Test 06/29/25 13:34 Lactic Acid Level 1.1 mmol/L (0.4-2.0) White Blood Count 7.2 10^3/uL (4.4-10.8) Departure 1 Departure Time of Disposition: 15:04 Impression: Primary Impression: Abdominal pain Disposition: 01 HOME / SELF CARE / HOMELESS Condition: Stable Additional Instructions: Additional instructions: Please read all instructions provided in this packet carefully. You MUST follow-up with your primary care/family doctor in 1 to 2 days. If you are unable to see your primary care/family doctor, please return to our emergency room for re-assessment and re-evaluation in 1 to 2 days. Return to the emergency room here in our facility or to the nearest ER [facility] if your symptoms change or worsen. CONSULTATIONS: you MUST Follow-up for consultation as soon as possible with: -gastroenterology and urology in 1-2 days. Please call for appointment You MUST call the consultants office yourself to make an appointment. You may need to arrange that through your insurance and/or your primary/family doctor. If you are unable to see the business operations consultant in 1 to 2 days, you must return to our emergency room (or any other ER of your choice) for re-assessment and re- evaluation. Adequate fluid hydration. Increase fiber intake. Although you have been discharged from the Emergency Department, this does not mean that you have a "clean bill of health". No definitive diagnosis for your symptoms has been made today. It is possible that you are in the process of developing a serious illness. This is why you must return to the ED without fail if any new or worsening symptoms develop. Below is a copy of your radiological report for follow up: [address] [address] Ph: [phone] DIAGNOSTIC IMAGING Diagnostic Imaging Report : [id number] Signed PATIENT: RICA TOVAR ACCT: [id number] UNIT: [id number] : 1960 LOC: ER ROOM / BED: / AGE / SEX: 64 / M ADM STATUS: REG ER SERVICE 1245 ORDERING PHYSICIAN: TAMMI STERN DO PROCEDURE(s): ABPL - CT AB PEL WO CON-NO ORAL OR IV REASON: abd pain ORDER NUMBER(s): [id number], ACCESSION NUMBER(s): [id number] Indication: abd pain Technique: CT axial images of the abdomen and pelvis are obtained without co ntrast. Coronal and sagittal reformats were obtained. Radiation Dose Information: CTDI volume is 18.81 mGy. Dose-length product is 1314.14 mGy*cm Comparison: [facility] on DOS: 09/06/22 FINDINGS: There is limited interpretation of the abdomen and pelvis without administration of intravenous contrast. The lung bases demonstrate pulmonary emphysematous changes. Left upper lobe lingular segment ground-glass disease. Adrenal glands, spleen, pancreas unremarkable in shape. No CT evidence for cholelithiasis. Liver unremarkable in shape. Kidneys demonstrate no hydronephrosis / nephrolithiasis. Gastric distention. Small bowel loops are normal in caliber. Moderate volume stool in the colon. Normal appendix. Postsurgical changes bowel in the right abdomen. Abdominal aortic atherosclerotic disease. Bladder partially distended. Mild bladder wall thickening with surrounding stranding. Left bladder diverticulum measuring 1.9 cm and 1.3 cm. No free pelvic fluid. No inguinal lymphadenopathy. Ybyc-kx-ihkonfxn bilateral sacroiliac degenerative joint disease. Qipv-px-owjcclgg thoracolumbar degenerative disc disease. Moderate spinal canal stenosis L3-4. IMPRESSION: Limited evaluation without contrast. Mild bladder wall thickening with surrounding stranding. Correlate for cystitis. Bladder diverticulum measuring up to 1.9 cm. Moderate volume stool throughout the colon. Left upper lobe lingular segment ground-glass airspace consolidation with differential considerations including infectious, inflammatory, hypoventilatory changes. Atherosclerotic disease. Gastric distention. Moderate spinal canal stenosis L3-4. Other findings as described. ATED BY: BRANDI GARDNER MD DICTATED DATE/TIME: 06/29/25 1354 SIGNED BY: BRANDI GARDNER MD SIGNED DATE/TIME: 06/29/25 1354 CC: Discharged With: Self Critical Care Note Critical Care Time?: No Stability Stability form required: No Heart Score Heart Score: Heart Score Response (Comments) Value History N/A 0 EKG N/A 0 Age N/A 0 Risk Factors N/A 0 Troponin N/A 0 Total 0 HERNANDEZ VILLAR RESIDENT Jun 29, 2025 13:25 TAMMI STERN DO Jun 29, 2025 15:05
--- NOTE | 2025-06-29 13:52 | DVH ---
Indication: abd pain Technique: CT axial images of the abdomen and pelvis are obtained without contrast. Coronal and sagit yara reformats were obtained. Radiation Dose Information: CTDI volume is 18.81 mGy. Dose-length product is 1314.14 mGy*cm Comparison: [facility] on DOS: 09/06/22 FINDINGS: There is limited interpretation of the abdomen and pelvis without administration of intravenous contr ast. The lung bases demonstrate pulmonary emphysematous changes. Left upper lobe lingular segment ground- glass disease. Adrenal glands, spleen, pancreas unremarkable in shape. No CT evidence for cholelithiasis. Liver unr emarkable in shape. Kidneys demonstrate no hydronephrosis / nephrolithiasis. Gastric distention. Small bowel loops are normal in caliber. Moderate volume stool in the colon. Normal appendix. Postsurgical changes bowel in the right abdomen. Abdominal aortic atherosclerotic disease. Bladder partially distended. Mild bladder wall thickening w ith surrounding stranding. Left bladder diverticulum measuring 1.9 cm and 1.3 cm. No free pelvic flu id. No inguinal lymphadenopathy. Ustg-ks-bbuwwwhp bilateral sacroiliac degenerative joint disease. Uago-kv-ezmwilyy thoracolumbar dege nerative disc disease. Moderate spinal canal stenosis L3-4. IMPRESSION: Limited evaluation without contrast. Mild bladder wall thickening with surrounding stranding. Correlate for cystitis. Bladder diverticulum measuring up to 1.9 cm. Moderate volume stool throughout the colon. Left upper lobe lingular segment ground-glass airspace consolidation with differential considerations including infectious, inflammatory, hypoventilatory changes. Atherosclerotic disease. Gastric distention. Moderate spinal canal stenosis L3-4. Other findings as described.
[2025-06-29 13:53] LABS: Hematocrit 45.1 % (41.0-53.0); Hemoglobin 15.4 g/dL (13.5-17.5); Mean Corpuscular Hemoglobin 31.5 pg (28.0-32.0); Mean Corpuscular Volume 92.6 fL (80.0-100.0); Nucleated Red Blood Cells % 0.1 %
[2025-06-29 14:09] LABS: Alanine Aminotransferase 19 U/L (7-40); Albumin 4.0 g/dL (3.2-4.8); Alkaline Phosphatase 90 U/L (46-116); Anion Gap 6 (5-15); BUN/Creatinine Ratio 14.6 (10.0-20.0); Bilirubin, Total 0.6 mg/dL (0.2-1.0); Blood Urea Nitrogen 14 mg/dL (9-23); Calcium 9.3 mg/dL (8.7-10.4); Carbon Dioxide 26 mmol/L (20-31); Potassium 4.1 mmol/L (3.5-5.1); Sodium 144 mmol/L (136-145); Total Protein 6.4 g/dL (5.7-8.2)
[2025-06-29 14:10] VITALS: PULSE 64; RESP 16; O2SAT 97
[2025-06-29 14:10] LABS: Chloride 112 mmol/L (98-107); Glucose 146 mg/dL (74-106); Lipase 53 U/L (12-53)
[2025-06-29 14:54] LABS: Urine Protein, UAD Negative (Negative)
[2025-06-29] MEDS: NITROGLYCERIN 0.4 MG SL TAB SL ONE (16:16)
[2025-06-29 16:36] VITALS: BP 166/89; PULSE 61; RESP 16; TEMP 98.7; O2SAT 98
== END 2025-06-29 16:38 | disposition home or self-care (01) ==
LOC: ER 12:35
DX: R10.11 Right upper quadrant pain (principal); R19.00 Intra-abdominal and pelvic swelling, mass and lump, unspecified site; I10 Essential (primary) hypertension; I25.10 Atherosclerotic heart disease of native coronary artery without angina pectoris; F17.210 Nicotine dependence, cigarettes, uncomplicated; I70.90 Unspecified atherosclerosis; Z79.82 Long term (current) use of aspirin; Z79.899 Other long term (current) drug therapy; Z95.5 Presence of coronary angioplasty implant and graft
CPT/HCPCS: 36415; 74176; 80053; 81001; 83605; 83690; 85025

== ENCOUNTER 2025-08-21 08:57 | Emergency (ER) | payer MEDICAID ==
[~2025-08-21] VITALS: Ht 185.4 cm; Wt 94.7 kg
[2025-08-21 09:30] VITALS: BP 145/88; PULSE 67; RESP 15; TEMP 98.3; O2SAT 95
--- NOTE | 2025-08-21 09:39 | ED.PDOC ---
SOB-HPI HPI Comments A 64 YEAR OLD MALE PRESENTS TO THE ED WITH COMPLAINT OF COUGH. PATIENT STATES HE HAS BEEN EXPERIENCING A COUGH, CONGESTION, AND RUNNY NOSE FOR THE PAST 4 DAYS. PATIENT DENIES FEVER, CHILLS, SHORTNESS OF BREATH, CHEST PAIN, ABDOMINAL PAIN, NAUSEA, VOMITING, HEADACHE, OR OTHER COMPLAINTS. NO OTHER SYMPTOMS OR MODIFYING FACTORS AT THIS TIME. PATIENT IS ALERT, ORIENTED X 4, AND HAS STEADY GAIT. Chief Complaint: Cough Time Seen by MD: 09:09 Primary Care Provider: Reji Baca notes: Nurses Notes, Medications, Allergies Information Source: Patient Mode of Arrival: Ambulatory Severity: Moderate Timing: Days Duration: Since onset, Days Context: Spontaneous Onset PE Risk Factors: None History of: Other Prehospital treatment: None Associated Signs and Symptoms: Cough, Nasal Congestion If cough with SOB: Productive Past Medical History PAST MEDICAL HISTORY: CAD, HTN Surgical History: PTCA Family History Family History: Reviewed,noncontributory to illness, Family hx of HTN Social History Smoker: Cigarettes Alcohol: Denies ETOH Use Drugs: Denies Drug Use Lives In: Home Constitutional: denies: chills, diaphoresis, fatigue, fever, malaise, sweats, weakness, others EENTM: reports: nose congestion; denies: blurred vision, double vision, ear bleeding, ear discharge, ear drainage, ear pain, ear ringing, eye pain, eye redness, hearing loss, mouth pain, mouth swelling, nasal discharge, nose bleeding, nose pain, photophobia, tearing, throat pain, throat swelling, voice changes, others Respiratory: reports: cough; denies: hemoptysis, orthopnea, SOB at rest, shortness of breath, SOB with excertion, stridor, wheezing, others Cardiovascular: denies: chest pain, dizzy spells, diaphoresis, Dyspnea on exertion, edema, irregular heart beat, left arm pain, lightheadedness, palpitations, PND, syncope, others Gastrointestinal: denies: abdomen distended, abdominal pain, blood streaked bowels, constipated, diarrhea, dysphagia, difficulty swallowing, hematemesis, melena, nausea, poor appetite, poor fluid intake, rectal bleeding, rectal pain, vomiting, others Genitourinary: denies: burning, dysuria, flank pain, frequency, hematuria, incontinence, penile discharge, penile sore, pain, testicle pain, testicle swelling, urgency, others Neurological: denies: dizziness, fainting, headache, left sided numbness, left sided weakness, numbness, paresthesia, pre-existing deficit, right sided numbness, right sided weakness, seizure, speech problems, tingling, tremors, weakness, others Musculoskeletal: denies: back pain, gout, joint pain, joint swelling, muscle pain, muscle stiffness, neck pain, others Integumetry: denies: bruises, change in color, change in hair/nails, dryness, laceration, lesions, lumps, rash, wounds, others Allergic/Immunocompromised: denies: Difficulty Healing, Frequent Infections, Hives, Itching, others Hematologic/Lymphatic: denies: anemia, blood clots, easy bleeding, easy bruising, swollen glands, others Endocrine: denies: excessive hunger, excessive sweating, excessive thirst, excessive urination, flushing, intolerance to cold, intolerance to heat, unex plained weight gain, unexplained weight loss, others Psychiatric: denies: anxiety, bipolar disorder, depression, hopeless, panic disorder, schizophrenia, sleepless, suicidal, others All Other Systems: Reviewed and Negative Physical Exam General Appearance: No Apparent Distress, Normal HEENT: Normal ENT Inspection, PERRL/EOMI, Pharynx Normal, TMs Normal Neck: Full Range of Motion, Non-Tender, Normal, Normal Inspection Respiratory: Chest Non-Tender, Expiration, No Accessory Muscle Use, No Resp iratory Distress, Rhonchi Cardiovascular: No Edema, No JVD, No Murmur, No Gallop, Normal Peripheral Pulses, Regular Rate/Rhythm Breast Exam: Deferred Gastrointestinal: No Organomegaly, Non Tender, No Pulsatile Mass, Normal Bowel Sounds, Soft Genitalia: Deferred Pelvic: Deferred Rectal: Deferred Extremities: No calf tenderness, Normal capillary refill, Normal inspection, Normal range of motion, Non-tender, No pedal edema Musculoskeletal : Apperance: Normal Neurologic: Alert, weight count operator II-XII nml as Tested, No Motor Deficits, Normal Affect, Normal Mood, No Sensory Deficits Cerebellar Function: Normal Reflexes: Normal Skin: Dry, Normal Color, Warm Peripheral Pulses: 2+ carotid (R), 2+ carotid (L) Lymphatic: No Adenopathy Was a procedure done? Was a procedure done?: No Differential Dx Differential Diagnosis: Bronchitis, Pneumonia, Sinusitis, Allergic Rhinitis, Otitis Media, Pharyngitis, URI X-Ray, Labs, Meds, VS Vital Signs Date Time Temp Pulse Resp B/P (MAP) Pulse Ox O2 Delivery O2 Flow Rate FiO2 08/21/25 09:30 98.3 67 15 145/88 (107) 95 98.3 08/21/25 09:30 67 15 95 Room Air 08/21/25 09:04 98.3 67 15 145/88 95 98.3 X-Ray, Labs, Meds, VS Comment EXTERNAL MEDICAL RECORDS REVIEWED: [NONE] INDEPENDENT HISTORIANS: [NONE] SOCIAL DETERMINANTS OF HEALTH: [NONE] LABS ORDERED: NONE REVIEWED AND INTERPRETED RESULTS: NONE IMAGING ORDERED: XR CHEST: [INTERPRETED BY ME. NO ACUTE FINDINGS. NO PNEUMONIA. NO CONSOLIDATIONS. NO INFILTRATES. PENDING RADIOLOGIST REPORT. ] TREATMENTS ORDERED: NONE PROCEDURES PERFORMED: NONE CRITICAL CARE TIME: NONE I HAVE DISCUSSED THE PATIENT WITH THE ATTENDING PHYSICIAN DR. THURSTON AND HE AGREES WITH THE PATIENT'S PLAN OF CARE AND DISPOSITION. BASED ON HISTORY OF PRESENT ILLNESS, AND PHYSICAL EXAM, PATIENT WILL BE DISCHARGED HOME. DISCUSSED PLAN FOR DISCHARGE HOME WITH RX [LEVAQUIN 500 MG AND TESSALON]. MEDICATION WARNINGS GIVEN. SHARED DECISION MAKING: PATIENT INSTRUCTED TO FOLLOW UP WITH PRIMARY CARE PROVIDER IN 1-2 DAYS FOR RE-EVALUATION OF SYMPTOMS. PATIENT VERBALIZES UNDERSTANDING TO RETURN TO ED FOR NEW OR WORSENING SYMPTOMS OR IF FOLLOW UP WITH PCP CANNOT BE OBTAINED. PATIENT FEELS COMFORTABLE GOING HOME AT THIS TIME. ALL QUESTIONS ADDRESSED AT TIME OF DISCHARGE. Images Reviewed?: Images reviewed and evaluated by me Time of 1ST Reevaluation: 10:00 Reevaluation 1ST: Improved Patient Education/Counseling: Diagnosis, Treatment, Need For Follow Up Family Education/Counseling: Diagnosis, Treatment, Need For Follow Up Medical Screening: No EMC Exist At This Time SEPSIS Sepsis Screen Date sepsis recognized/suspect: Aug 21, 2025 Time Sepsis recognized/suspect: 905 Recent Procedure: No On Antibiotic Therapy: No Respiratory Rate >20: No Heart Rate >90: No Temp<36 C (96.8 F) or >38.3 C: No SBP <90 or MAP <65 mmHG: No New Acute Mental Status Change: No Is the patient on CPAP, BIPAP,: No Physician Orders Chest Two Views Routine (08/21/25 09:12) Vital Signs Date Time Temp Pulse Resp B/P (MAP) Pulse Ox O2 Delivery O2 Flow Rate FiO2 08/21/25 09:30 98.3 67 15 145/88 (107) 95 98.3 08/21/25 09:30 67 15 95 Room Air 08/21/25 09:04 98.3 67 15 145/88 95 98.3 Departure 1 Departure Time of Disposition: 10:00 Impression: Primary Impression: Acute bronchitis Qualified Codes: J20.9 - Acute bronchitis, unspecified Disposition: HOME / SELF CARE / HOMELESS Condition: Stable Additional Instructions: FOLLOW-UP WITH PCP IN 1 TO 2 DAYS. TAKE MEDICATIONS PRESCRIBED. RETURN TO ED FOR ANY NEW OR WORSENING SYMPTOMS. e-Prescriptions Benzonatate (Benzonatate) 200 Mg Cap 1 CAP PO TID, #30 CAP Prov: MELISSA YOUNG 08/21/25 Levofloxacin Hemihydrate (LEVAQUIN 500 MG) 500 Mg Tab 1 TAB PO DAILY, #10 TAB Prov: MELSISA YOUNG 08/21/25 Discharged With: Self Critical Care Note Critical Care Time?: No Stability Stability form required: No Heart Score Heart Score: Heart Score Response (Comments) Value History N/A 0 EKG N/A 0 Age N/A 0 Risk Factors N/A 0 Troponin N/A 0 Total 0 I personally scribed for MELISSA YOUNG ([email or web address]) on 08/21/25 at 09:39. Electronically submitted by Eliezer Key ([email or web address]). MELISSA YOUNG Aug 21, 2025 09:39
[2025-08-21] MEDS ORDERED: BENZ200C64 PO (09:41)
[2025-08-21] MEDS ORDERED: LEVO500T91 PO (09:41)
--- NOTE | 2025-08-21 09:51 | DVH ---
CHEST RADIOGRAPH INDICATION: COUGH TECHNIQUE: Frontal and lateral view of the chest was obtained COMPARISON: XY CHEST XRAY 1 VIEW on DOS: 04/21/24, XR CHEST 1 VIEW on DOS: 10/14/23, XY CHEST PORTABLE on DOS: 05/09/23, CHEST PORTABLE on DOS: 09/05/22, CXRP on DOS: 09/05/22 FINDINGS: Lines and Tubes: None Lungs: Left basilar subsegmental atelectasis Pleura: No effusion. No pneumothorax. Cardiomediastinal contours: Unremarkable Bones: Unremarkable IMPRESSION: Left basilar subsegmental atelectasis.
== END 2025-08-21 09:48 | disposition home or self-care (01) ==
LOC: ER 08:57
DX: J20.9 Acute bronchitis, unspecified (principal); I10 Essential (primary) hypertension; F17.210 Nicotine dependence, cigarettes, uncomplicated; I25.10 Atherosclerotic heart disease of native coronary artery without angina pectoris
CPT/HCPCS: 71046